=== PATIENT | female | born 2000 | race African-American/Black ===

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

== ENCOUNTER 2018-08-13 01:01 | Emergency (ER) | payer OTHER ==
--- NOTE | 2018-08-13 01:26 | ED ---
Head Injury - HPI Summary HPI Summary: A 18 y/o F presents to ED with c/o L shoulder pain s/p fall on 08/11/18. Pt slipped and fell, hitting the backside of her head. She denies LOC, but felt mildly dazed. She was able to get up from her fall and ambulate. Associated sx: TINSLEY, light sensitive resolved, lightheadedness resolved, UE tingling lasting 30 minutes, mild L wrist pain. She is most concerned regarding the tingling in her arm. Denies: hand weakness, n/v, difficulty concentration, changes in balance. She spoke with [facility] who referred her to ED. Denies PMHx and denies daily medications. - History Of Current Complaint Chief Complaint: EDHeadInjury Stated Complaint: FALL, POSS HEAD INJURY Hx Obtained From: Patient Mechanism Of Injury: Fall From A Standing Position Onset/Duration: Started Days Ago, Still Present Severity Currently: Moderate Severity Initially: Moderate Pain Intensity: 5 Pain Scale Used: 0-10 Numeric Location of Head Injury: Occipital Associated Signs And Symptoms: Headache, Visual Changes - resolved, Other: - pos : lightheadedness resolved, UE tingling lasting 30 minutes, mild L wrist pain. neg: hand weakness, n/v, difficulty concentration, changes in balance. - Allergies/Home Medications Allergies/Adverse Reactions: Allergies Allergy/AdvReac Type Severity Reaction Status Date / Time shellfish derived Allergy Rash And Verified 08/13/18 01:06 Itching PMH/Surg Hx/FS Hx/Imm Hx Previously Healthy: Yes Respiratory History: Denies: Hx Chronic Obstructive Pulmonary Disease (COPD) Sensory History: Reports: Hx Contacts or Glasses - Not necessary all the time. Uses glasses periodically. Denies: Hx Hearing Aid Opthamlomology History: Reports: Hx Contacts or Glasses - Not necessary all the time. Uses glasses periodically. Psychiatric History: Reports: Other Psychiatric Issues/Disorders - states that she has met a psychiatrist twice on single episodes Denies: Hx Anxiety, Hx Eating Disorder, Hx Depression, Hx Inpatient Treatment , Hx Suicide Attempt, Hx of Violent Episodes Against Others Infectious Disease History: No Infectious Disease History: Denies: Traveled Outside the [place] in Last 30 Days - Family History Known Family History: Negative: Other - negative depression or anxiety - Social History Occupation: Student Lives: Dormitory/Roommates Alcohol Use: states that she does not drink Hx Substance Use: No Substance Use Type: Reports: None Hx Tobacco Use: No Smoking Status (MU): Never Smoked Tobacco Review of Systems Positive: Photophobia - resolved Negative: Vomiting, Nausea Musculoskeletal: Other - pos: mild L wrist pain Neurological: Other - pos: lightheadedness resolved; UE tingling. neg: balance changes; difficulty concentrating Positive: Headache. Negative: Weakness - neg: hand weakness All Other Systems Reviewed And Are Negative: Yes Physical Exam - Summary Physical Exam Summary: Appearance: Well-appearing, Well-nourished, lying in bed comfortably Skin: Warm, dry, no obvious rash Eyes: sclera anicteric, no conjunctival pallor ENT: mucous membranes moist, pharynx appears normal Neck: Supple, nontender Respiratory: Clear to auscultation, no signs of respiratory distress Cardiovascular: Normal S1, S2. No murmurs. Normal distal pulses in tibial and radial bilaterally. Abdomen: Soft, nontender, normal active bowel sounds present Musculoskeletal: Normal, Strength/ROM Intact, Motor function in all 4 extremities is normal and symmetric. There is no rigidity or tremor noted. Neurological: A&Ox3, awake and alert, mentation is normal, speech is fluent and appropriate, Level of consciousness nml. The patient is alert and oriented. Cranial nerves are grossly intact. Gaze is conjugate and without nystagmus. Peripheral vision is intact to confrontation. There are no gross sensory abnormalities to light touch. There is no truncal or fine motor ataxia. Gait is normal. Psychiatric: affect is normal, does not appear anxious or depressed Triage Information Reviewed: Yes Vital Signs On Initial Exam: Initial Vitals Temp Pulse Resp BP Pulse Ox 98.1 F 79 16 120/80 99 08/13/18 01:04 08/13/18 01:04 08/13/18 01:04 08/13/18 01:04 08/13/18 01:04 Vital Signs Reviewed: Yes Diagnostics - Vital Signs Vital Signs Temp Pulse Resp BP Pulse Ox 08/13/18 01:04 98.1 F 79 16 120/80 99 - Laboratory Lab Statement: Any lab studies that have been ordered have been reviewed, and results considered in the medical decision making process. Head Injury Course/Dx Course Of Treatment: Pt is a healthy 18 y/o F presenting with L shoulder pain s/ p fall on 08/11/18. Pt slipped and fell, hitting the backside of her head. She denies LOC, but felt mildly dazed. She was able to get up from her fall and ambulate. Associated sx: TINSLEY, light sensitive resolved, lightheadedness resolved , UE tingling lasting 30 minutes, mild L wrist pain. Denies: hand weakness, n/v , difficulty concentration, changes in balance. PE is unremarkable, pt is neurologically intact. Will discharge home to f/u with [facility] as needed. - Diagnoses Provider Diagnoses: Cervical strain Discharge - Sign-Out/Discharge Documenting (check all that apply): Patient Departure - D/C - Discharge Plan Condition: Good Disposition: HOME Patient Education Materials: Cervical Strain (ED) Referrals: [facility] - MRJulio [Primary Care Provider] - If Needed Additional Instructions: I expect that your neck and shoulder soreness will probably stay about the same over the next couple of days and then gradually subside. If you get much worse, in particular if you notice any weakness in the arms or hands, I would recommend that you return and we would likely do a CT scan of your neck. I think that is very unlikely to happen though. - Billing Disposition and Condition Condition: GOOD Disposition: Home - Attestation Statements Document Initiated by Samreen: Yes Documenting Scribe: Seth Aldridge Provider For Whom Samreen is Documenting (Include Credential): Dr. Kirk Alamo MD Scribe Attestation: I, Seth Aldridge, scribed for Dr. Kirk Alamo MD on 08/13/18 at 0525. Scribe Documentation Reviewed: Yes Provider Attestation: The documentation as recorded by the Seth cooley accurately reflects the service I personally performed and the decisions made by me, Dr. Kirk Alamo MD Status of Scribe Document: Viewed
[2018-08-13 01:45] VITALS: BP 116/66
== END 2018-08-13 01:46 | disposition home or self-care (01) ==
LOC: ED 01:01
DX: S16.1XXA Strain of muscle, fascia and tendon at neck level, initial encounter (principal); M25.512 Pain in left shoulder; R51 Headache; R42 Dizziness and giddiness; W01.0XXA Fall on same level from slipping, tripping and stumbling without subsequent striking against object, initial encounter; Y92.9 Unspecified place or not applicable
CPT/HCPCS: 99282